=== PATIENT | female | born 1945 | race Caucasian/White ===

== ENCOUNTER → 2017-04-12 | Outpatient (CLI) | payer MEDICARE | END | disposition home or self-care (01) | LOC: PCVCCLINIC 14:48 | PROVIDERS: ATTEND Internal Medicine | DX: I10 Essential (primary) hypertension (principal); I65.29 Occlusion and stenosis of unspecified carotid artery; I73.9 Peripheral vascular disease, unspecified; E78.2 Mixed hyperlipidemia; Z87.891 Personal history of nicotine dependence; Z79.01 Long term (current) use of anticoagulants; Z88.2 Allergy status to sulfonamides | CPT/HCPCS: 93005; G0463 ==

== ENCOUNTER → 2017-04-15 | Outpatient (CLI) | payer MEDICARE ==
[~2017-04-15] MED LIST: REGADENOSON 0.4 MG/5 ML DISP.SYRIN. IV ONE
--- NOTE | 2017-04-16 09:45 | PCVCIMAG ---
APPROVED REPORT Exam: Nuclear Stress Test Indication: Exertional Dyspnea Stress Nurse: Abimbola Lentz RN, MAT Poon Tech:DANIE Quiñonez Ht: 5 ft 7 in Wt: 118 lbs BSA: 1.62 m2 HR: 71 bpm BP: 178/80 mmHg BMI: 18.4 Rhythm: NSR Medical History Medical History: HTN, Hyperlipidemia, PAD, CVD Medications: Crestor, benicar, clopidogrel, pantoprazole, aspirin, hctz, metoprolol succinate Allergies: Sulfa Cardiac Risk Factors: Age Pretest Chest Pain Characteristics: No chest pain Exercise History: Physically active Meds Held (24 hrs): Metoprolol succinate NM EXAM: Myocardial Perfusion REST/STRESS Imaging Protocol: Rest Tc-99m/Stress Tc-99m 1 day Resting Data Rest SPECT myocardial perfusion imaging was performed in supine position 45 minutes following the intravenous injection of 8.6 mCi of Tc-99m Sestamibi. Time of rest injection: 1300 Date: 04/15/2017 Pharmacologic Stress Pharmacologic stress test was performed by injecting Regadenoson 0.4 mg IV push followed by the intravenous injection of 27.4 mCi of Tc-99m Sestamibi. Time of stress injection: 1430 Date: 04/15/2017 Administration Route: IV Administration Site: Right Arm Gated Stress SPECT was performed 45 minutes after stress injection. The images were gated to evaluate regional wall motion and calculate left ventricular ejection fraction. Study Quality Study: Good Study Data Post stress, the left ventricular ejection was 89%.. SSS: 3 SRS: 2 SDS: 1 TID = 0.59. Perfusion No evidence of stress induced ischemia or prior myocardial infarction. Wall Motion Normal left ventricular size and function with no regional wall motion abnormalities. Nuclear Conclusion No evidence of stress induced ischemia or prior myocardial infarction. Normal left ventricular size and function with no regional wall motion abnormalities. Post stress, the left ventricular ejection was 89%.. No prior study available for comparison. Interpreted by: Joey Urena MD Electronically Approved: 04/15/2017 16:55:17 Stress Test Details Stress Test: Pharmacologic stress was paired with low level exercise. Reason for pharmacologic stress test: physical limitation, dyspnea. HR Resting HR: 71 bpmMax Heart Rate (APMHR): 150 bpm Max HR Achieved: 114 bpmTarget HR (85% APMHR): 127 bpm % of APMHR: 76 Recovery HR: 88 bpm BP Resting BP: 178/80 mmHg Max BP: 160/80 mmHg Recovery BP: 166/80 mmHg ECG Resting ECG: Sinus Rhythm Stress ECG: Sinus Rhythm ST Change: None Maximum ST Deviation: 0 mm Arrhythmia: None Recovery ECG: Sinus Rhythm Recovery ST Change: None Recovery ST Deviation: 0 mm Recovery Arrhythmia: None Clinical Reason for Termination: Completed protocol Stress Symptoms: Dyspnea, Abdominal discomfort, resolved during recovery Exercise duration: 4 min sec Exercise capacity: 1.6 METs Angina Score: None Stress ECG Conclusion Ogles[place] Treadmill Score is 4.0 which is Moderate risk.
== END | disposition home or self-care (01) ==
LOC: PCVCIMAG 12:37
PROVIDERS: ATTEND Internal Medicine
DX: I73.9 Peripheral vascular disease, unspecified (principal); I10 Essential (primary) hypertension; E78.5 Hyperlipidemia, unspecified
CPT/HCPCS: 78452; 93017; A9500; J2785

== ENCOUNTER → 2017-08-07 | Outpatient (CLI) | payer MEDICARE ==
--- NOTE | 2017-08-07 09:29 | PCVCIMAG ---
APPROVED REPORT Indications Stenosis History of Smoking Doppler Spectral Velocity Analysis PSV / EDVPSV / EDV ECA (R) 70 / 8 cm/sECA (L) 106 / 13 cm/s dICA (R) 67 / 16 cm/sdICA (L) 114 / 24 cm/s Jess (R) 81 / 19 cm/smICA (L) 95 / 25 cm/s pICA (R) 50 / 10 cm/spICA (L) 75 / 18 cm/s Bulb (R) 67 / 15 cm/sBulb (L) 73 / 14 cm/s dCCA (R) 60 / 14 cm/sdCCA (L) 71 / 14 cm/s mCCA (R) 66 / 14 cm/smCCA (L) 71 / 14 cm/s Vert (R) 80 / 18 cm/sVert (L) 35 / 8 cm/s ICA/CCA 1.35ICA/CCA 1.61 Basic Measurements Blood Pressure: Pulses: Right Left RightLeft Brachial(Sitting) 117/19xaGk475/81mmHgTemporal Real Time B-Mode Imaging Vert. (R)AntegradeVert. (L)Antegrade Findings The right carotid bulb has moderate calcified plaque. The right proximal internal carotid artery shows <40% stenosis. The right common carotid artery shows no significant stenosis. The right external carotid artery shows no significant stenosis. The left carotid bulb has moderate calcified plaque. The left proximal internal carotid artery shows <40% stenosis. The left common carotid artery shows no significant stenosis. The left external carotid artery shows no significant stenosis. Conclusion 1. Right internal carotid artery stenosis (<40%) 2. Left internal carotid artery stenosis (<40%) 3. Antegrade vertebral flow
== END | disposition home or self-care (01) ==
LOC: PCVCIMAG 08:28
PROVIDERS: ATTEND Internal Medicine
DX: I65.23 Occlusion and stenosis of bilateral carotid arteries (principal); I10 Essential (primary) hypertension; E78.2 Mixed hyperlipidemia; I73.9 Peripheral vascular disease, unspecified; Z87.891 Personal history of nicotine dependence; Z79.82 Long term (current) use of aspirin; Z79.899 Other long term (current) drug therapy; Z88.2 Allergy status to sulfonamides
CPT/HCPCS: 80061; 93005; 93880; G0463

== ENCOUNTER → 2018-02-05 | Outpatient (CLI) | payer MEDICARE | END | disposition home or self-care (01) | LOC: PCVCCLINIC 10:14 | DX: I10 Essential (primary) hypertension (principal); I65.23 Occlusion and stenosis of bilateral carotid arteries; E78.5 Hyperlipidemia, unspecified; I73.9 Peripheral vascular disease, unspecified; R94.31 Abnormal electrocardiogram [ECG] [EKG]; Z87.891 Personal history of nicotine dependence; Z79.899 Other long term (current) drug therapy; Z79.82 Long term (current) use of aspirin | CPT/HCPCS: 80061; 93005; G0463 ==

== ENCOUNTER → 2018-08-20 | Outpatient (CLI) | payer MEDICARE ==
--- NOTE | 2018-08-20 11:01 | PCVCIMAG ---
APPROVED REPORT Indications Stenosis Risk Factors Hypertension: History of Smoking Doppler Spectral Velocity Analysis PSV / EDVPSV / EDV ECA (R) 87 / 10 cm/sECA (L) 112 / 17 cm/s dICA (R) 87 / 24 cm/sdICA (L) 50 / 20 cm/s Jess (R) 97 / 26 cm/smICA (L) 104 / 31 cm/s pICA (R) 64 / 16 cm/spICA (L) 72 / 19 cm/s Bulb (R) 47 / 10 cm/sBulb (L) 80 / 18 cm/s dCCA (R) 51 / 12 cm/sdCCA (L) 74 / 16 cm/s mCCA (R) 78 / 12 cm/smCCA (L) 85 / 16 cm/s Vert (R) 68 / 20 cm/sVert (L) 68 / 16 cm/s ICA/CCA 1.90 ICA/CCA 1.41 Basic Measurements Blood Pressure: Pulses: Right Left RightLeft Brachial(Sitting) 120/13kkIy841/74mmHgTemporal Real Time B-Mode Imaging Vert. (R)AntegradeVert. (L)Antegrade Findings The right carotid bulb has moderate calcified plaque. The right proximal internal carotid artery shows <40% stenosis. The right common carotid artery shows no significant stenosis. The right external carotid artery shows no significant stenosis. The left carotid bulb has moderate plaque. The left proximal internal carotid artery shows <40% stenosis. The left common carotid artery shows no significant stenosis. The left external carotid artery shows no significant stenosis. Conclusion 1. Right internal carotid artey stenosis (<40%) 2. Left internal carotid artery stenosis (<40%) 3. Antegrade vertebral flow
== END | disposition home or self-care (01) ==
LOC: PCVCIMAG 10:25
PROVIDERS: ATTEND Internal Medicine
DX: I65.23 Occlusion and stenosis of bilateral carotid arteries (principal); I10 Essential (primary) hypertension; E78.5 Hyperlipidemia, unspecified; I73.9 Peripheral vascular disease, unspecified; Z79.82 Long term (current) use of aspirin; Z87.891 Personal history of nicotine dependence
CPT/HCPCS: 80061; 93005; 93880; G0463

== ENCOUNTER → 2019-02-19 | Outpatient (CLI) | payer MEDICARE | END | disposition home or self-care (01) | LOC: PCVCCLINIC 10:00 | PROVIDERS: ATTEND Internal Medicine | DX: I10 Essential (primary) hypertension (principal); E78.5 Hyperlipidemia, unspecified; I65.23 Occlusion and stenosis of bilateral carotid arteries; I73.9 Peripheral vascular disease, unspecified; Z88.2 Allergy status to sulfonamides | CPT/HCPCS: 36415; 80061; 93005; G0463 ==

== ENCOUNTER → 2019-09-02 | Outpatient (CLI) | payer MEDICARE ==
--- NOTE | 2019-09-02 14:30 | PCVCIMAG ---
APPROVED REPORT Indications Stenosis Risk Factors Hypertension: Hyperlipidemia History of Smoking Doppler Spectral Velocity Analysis PSV / EDVPSV / EDV ECA (R) 101 / 16 cm/sECA (L) 122 / 18 cm/s dICA (R) 81 / 25 cm/sdICA (L) 103 / 27 cm/s Jess (R) 84 / 27 cm/smICA (L) 107 / 30 cm/s pICA (R) 58 / 14 cm/spICA (L) 82 / 24 cm/s Bulb (R) 50 / 14 cm/sBulb (L) 80 / 19 cm/s dCCA (R) 58 / 14 cm/sdCCA (L) 82 / 18 cm/s mCCA (R) 68 / 13 cm/smCCA (L) 89 / 16 cm/s Vert (R) 61 / 16 cm/sVert (L) 50 / 11 cm/s ICA/CCA 1.45ICA/CCA 1.30 Basic Measurements Blood Pressure: Pulses: Right Left RightLeft Brachial(Sitting) 123/38bwAm267/70mmHgTemporal Real Time B-Mode Imaging Vert. (R)AntegradeVert. (L)Antegrade Findings The right carotid bulb has moderate calcified plaque. The right proximal internal carotid artery shows <40% stenosis. The right common carotid artery shows no significant stenosis. The right external carotid artery shows no significant stenosis. The left carotid bulb has moderate calcified plaque. The left proximal internal carotid artery shows <40% stenosis. The left common carotid artery shows no significant stenosis. The left external carotid artery shows no significant stenosis. Conclusion 1. Right internal carotid artery stenosis (<40%). 2. Left internal carotid artery stenosis (<40%). 3. Antegrade vertebral flow. Similar to May 2018
== END | disposition home or self-care (01) ==
LOC: PCVCIMAG 13:19
PROVIDERS: ATTEND Internal Medicine
DX: I65.23 Occlusion and stenosis of bilateral carotid arteries (principal); I10 Essential (primary) hypertension; E78.5 Hyperlipidemia, unspecified; I73.9 Peripheral vascular disease, unspecified; Z79.82 Long term (current) use of aspirin; Z87.891 Personal history of nicotine dependence; Z88.1 Allergy status to other antibiotic agents; Z79.899 Other long term (current) drug therapy
CPT/HCPCS: 36415; 80061; 93005; 93880; G0463